=== PATIENT | male | born 1980 | race Caucasian/White ===

== ENCOUNTER 2020-05-20 06:00 | Outpatient (RCR) | payer OTHER, SELFPAY | END 2020-06-18 23:59 | disposition home or self-care (01) | LOC: GPT 06:00 | PROVIDERS: Referring Provider Neurological Surgery; Visit Provider Neurological Surgery | DX: M54.5 Low back pain (principal); G89.29 Other chronic pain; M96.1 Postlaminectomy syndrome, not elsewhere classified | CPT/HCPCS: 97032; 97110; 97112; 97116; 97140; 97161; 97530 ==

== ENCOUNTER 2023-12-28 09:15 | Day surgery (SDC) | payer BC, MEDICAID, SELFPAY ==
[2023-12-28 09:38] VITALS: BP 116/62; PULSE 69; RESP 18; TEMP 36.1; O2SAT 100
[2023-12-28 09:42] VITALS: BMI 30.6
[2023-12-28] MEDS: sodium chloride 0.9% 1,000 ML 30 ML IV (09:50)
--- NOTE | 2023-12-28 10:03 | ANES.PREANE2 ---
Pre-Anesthetic Assessment Height/Weight: Height 1.66 m Weight 84.822 kg Temp Pulse Resp BP Pulse Ox O2 Del Method 97.0 F L 69 18 116/62 100 Room Air 12/28/23 09:38 12/28/23 09:38 12/28/23 09:38 12/28/23 09:38 12/28/23 09:38 12/28/23 09:38 Preop Diagnosis: screening Operation Date: 12/28/23 10:30 Proposed Procedures p EGD - 48348, 19532, G0105, K92.2, K21.9(Not Applicable) - Davis Peralta DO s Colonoscopy(Not Applicable) - Davis Peralta DO Familial anesthetic complications: none Was Beta Carlyle taken within 24 hours: N/A Was Clonidine taken within 24 hours: N/A Last intake: Intake Last Liquid Date 12/27/23 Last Liquid Time 20:00 Last Solid Date 12/26/23 Last Solid Time 20:00 Social No alcohol and No tobacco Exam alert, oriented x 3 and clear to auscultation bilaterally Airway Mallampati: Class III Dentition: full (missing front, bottom tooth) History/ROS No significant history except as noted Pulmonary Asthma (rarely uses inhaler) pt thinks he may have sleep apnea and is going for a sleep study on 01/02/24 CV/HEM None reported None reported Hepatic None reported GI Gastroesophageal Reflux Disease Metabolic None reported Musc/skel Lower Back Pain (chronic) Neuropsych None reported Anesthetic Plan ASA status: 2 Anesthesia: MAC Risk of > 500 ml blood loss (7ml/kg in children): No Medications/Allergies Home Medications Medication Instructions Recorded Confirmed Last Taken Type albuterol sulfate 90 mcg/actuation 1 inh inhalation QID PRN sob 11/03/23 12/28/23 Unknown History aerosol inhaler cholecalciferol (vitamin D3) 25 25 mcg PO DAILY 11/03/23 12/28/23 12/27/23 History mcg (1,000 unit) capsule cyanocobalamin (vitamin B-12) 1,000 mcg IM .Monthly 11/03/23 12/28/23 12/03/23 History 1,000 mcg/mL injection solution epinephrine 0.15 mg/0.3 mL 0.15 mg IM Q30M PRN allrgy 11/03/23 12/28/23 Unknown History injection,auto-injector pantoprazole 40 mg tablet,delayed 40 mg PO BID 6 weeks #84 tabs 11/14/23 12/28/23 12/28/23 Rx release (Protonix) ascorbic acid (vitamin C) 500 mg 500 mg PO DAILY 12/13/23 12/28/23 12/26/23 History capsule ferrous fumarate 325 mg (106 mg 325 mg PO DAILY 12/13/23 12/28/23 12/26/23 History iron) tablet trazodone 100 mg tablet 200 mg (2 x 100 mg) PO .HS PRN 12/13/23 12/28/23 12/27/23 Rx insomnia #60 tabs venlafaxine 150 mg tablet,extended 150 mg PO DAILY #30 tabs 12/13/23 12/28/23 12/27/23 Rx release 24 hr Allergies Allergy/AdvReac Type Severity Reaction Status Date / Time Alpha-Gal Allergy Intermediate ALGY-Anaphy Verified 12/28/23 09:37 (Cpgqjgntg-Nmxwz-1,3-Gala laxis codeine Allergy Intermediate Sweating & Verified 12/28/23 09:37 hives. Current Medications Generic Name Dose Route Start Last Admin Trade Name Freq PRN Reason Stop Dose Admin Sodium Chloride 1,000 mls @ 30 mls/hr 12/28/23 09:30 12/28/23 09:50 Sodium Chloride 0.9% IV 12/29/23 09:29 30 mls/hr .Q24H FLOR Administration PFSH Anesthesia Medical History Psychiatric care Family History Mother Cancer breast Unknown Cancer prostate cancer Social History Smoking and tobacco/nicotine status: unknown if used tobacco/nicotine Alcohol intake: former Data Anesthesia Cardiac Studies: No Data to Display
--- NOTE | 2023-12-28 10:14 | PM.HP ---
Providers/Chief Complaint Chief Complaint: K92.2 History of Present Illness Harry Irwin is a 43 year old male Review of Systems General: Reports: 10 or more systems reviewed and unremarkable except in HPI and below Medications/Allergies Home Medications Medication Instructions Recorded Confirmed Last Taken Type albuterol sulfate 90 mcg/actuation 1 inh inhalation QID PRN sob 11/03/23 12/28/23 Unknown History aerosol inhaler cholecalciferol (vitamin D3) 25 25 mcg PO DAILY 11/03/23 12/28/23 12/27/23 History mcg (1,000 unit) capsule cyanocobalamin (vitamin B-12) 1,000 mcg IM .Monthly 11/03/23 12/28/23 12/03/23 History 1,000 mcg/mL injection solution epinephrine 0.15 mg/0.3 mL 0.15 mg IM Q30M PRN allrgy 11/03/23 12/28/23 Unknown History injection,auto-injector pantoprazole 40 mg tablet,delayed 40 mg PO BID 6 weeks #84 tabs 11/14/23 12/28/23 12/28/23 Rx release (Protonix) ascorbic acid (vitamin C) 500 mg 500 mg PO DAILY 12/13/23 12/28/23 12/26/23 History capsule ferrous fumarate 325 mg (106 mg 325 mg PO DAILY 12/13/23 12/28/23 12/26/23 History iron) tablet trazodone 100 mg tablet 200 mg (2 x 100 mg) PO .HS PRN 12/13/23 12/28/23 12/27/23 Rx insomnia #60 tabs venlafaxine 150 mg tablet,extended 150 mg PO DAILY #30 tabs 12/13/23 12/28/23 12/27/23 Rx release 24 hr Allergies Allergy/AdvReac Type Severity Reaction Status Date / Time Alpha-Gal Allergy Intermediate ALGY-Anaphy Verified 12/28/23 09:37 (Zdbwopbry-Rqzrx-3,3-Gala laxis codeine Allergy Intermediate Sweating & Verified 12/28/23 09:37 hives. PFSH Acute PFSH: Medical History Psychiatric care Family History Mother Cancer breast Unknown Cancer prostate cancer Social History Smoking and tobacco/nicotine status: unknown if used tobacco/nicotine Alcohol intake: former Vitals/I&O/Wt Last Vital Signs Temp 97.0 F L 12/28/23 09:38 Pulse 69 12/28/23 09:38 Resp 18 12/28/23 09:38 BP 116/62 12/28/23 09:38 Pulse Ox 100 12/28/23 09:38 O2 Del Method Room Air 12/28/23 09:38 Weight last 48 hrs Weight 187 lb A&P Assessment and plan (1) GI bleed: (2) Abscess, perirectal: Plan EGD Colonoscopy and examination under anesthesia Attestations Medical Necessity Statement*: Home Coding Level of Care Code Acute Code for [facility] Fwd Diagnoses GI bleed K92.2 Abscess, perirectal K61.1
[2023-12-28 10:40] VITALS: BP 118/81; PULSE 88; RESP 16; TEMP 36.2; O2SAT 96
[2023-12-28 10:50] VITALS: BP 131/69; PULSE 80; RESP 16; O2SAT 99
[2023-12-28 11:00] VITALS: BP 134/83; PULSE 70; RESP 16; O2SAT 100
[2023-12-28 11:10] VITALS: BP 128/80; PULSE 65; RESP 16; O2SAT 100
--- NOTE | 2023-12-28 11:20 | ANE.PACU2 ---
Inpatient post-anesthesia follow up: Airway intact: Yes Vital signs: Temperature 97.2 F Pulse Rate 65 Respiratory Rate 16 Blood Pressure 128/80 Pulse Oximetry 100 Oxygen Delivery Me thod Room Air Oxygen Flow Rate Fraction of Inspir ed Oxygen Hydration adequate: Yes Nausea and vomiting: No Pain level: 1 Mental status: Baseline
== END 2023-12-28 11:22 | disposition home or self-care (01) ==
PROVIDERS: Visit Provider Surgery
PROC: 0DJ08ZZ Inspection of Upper Intestinal Tract, Via Natural or Artificial Opening Endoscopic (ICD-10-PCS; CPT 43235; principal; 2023-12-28 10:30)
PROC: 0DJD8ZZ Inspection of Lower Intestinal Tract, Via Natural or Artificial Opening Endoscopic (ICD-10-PCS; CPT 45378; 2023-12-28 10:30)
DX: K92.2 Gastrointestinal hemorrhage, unspecified (principal); K91.1 Postgastric surgery syndromes; K64.8 Other hemorrhoids; K21.9 Gastro-esophageal reflux disease without esophagitis; K29.50 Unspecified chronic gastritis without bleeding
CPT/HCPCS: 43239; 45378; 88305; 88342; J7030

== ENCOUNTER 2024-01-17 08:02 | Day surgery (SDC) | payer BC, MEDICAID, SELFPAY ==
[2024-01-17] VITALS (12 sets, daily range): BP systolic 133–153; BP diastolic 72–89; PULSE 71–113; RESP 11–24; TEMP 36.1–36.6; O2SAT 93–100; BMI 32.3
[2024-01-17] MEDS: sodium chloride 0.9% 1,000 ML 30 ML IV (08:34)
--- NOTE | 2024-01-17 08:54 | W.PM.OPSUD ---
Surgery/Procedure H&P Update DATE OF PROCEDURE: January 17, 2024 DATE H&P PERFORMED: 01/06/24 H&P UPDATE INFORMATION: I have reviewed H&P completed within last 30 days, I have examined patient prior to procedure and No changes to prior documentation PLANNED PROCEDURE: Operation Date: 01/17/24 09:45 Proposed Procedures p Hemorrhoidectomy 22226 29573, K64.8(Not Applicable) - aDvis Peralta DO
--- NOTE | 2024-01-17 09:51 | ANES.PREANE2 ---
Pre-Anesthetic Assessment Height/Weight: Height 5 ft 6 in Weight 200 lb Temp Pulse Resp BP Pulse Ox O2 Del Method 97.9 F 71 16 135/88 99 Room Air 01/17/24 08:26 01/17/24 08:26 01/17/24 08:26 01/17/24 08:26 01/17/24 08:26 01/17/24 08:26 Preop Diagnosis: Internal hemorrhoids Operation Date: 01/17/24 09:45 Proposed Procedures p Hemorrhoidectomy 30373 45762, K64.8(Not Applicable) - Davis Peralta, DO Was Beta Carlyle taken within 24 hours: N/A Was Clonidine taken within 24 hours: N/A Last intake: Intake Last Liquid Date 01/16/24 Last Liquid Time 20:00 Last Solid Date 01/16/24 Last Solid Time 18:00 Social No alcohol and No tobacco Exam alert, oriented x 3, clear to auscultation bilaterally and regular rate & rhythm Airway Submandibular: within normal limits Cervical ROM: within normal limits Mallampati: Class II Dentition: full Comments: Comments: Front missing tooth Anesthetic Plan ASA status: 2 Anesthesia: General Other: No prior issues with anesthesia Recent colonoscopy without issues NPO since yesterday On chronic oxy for back pain, due for lumbar fusion in 3 weeks Alpha gal positive, anesthesia team aware GERD, on chronic Protonix Patient is able to perform ADLs, limited due to chronic pain Plan for GETA Medications/Allergies Home Medications Medication Instructions Recorded Confirmed Last Taken Type albuterol sulfate 90 mcg/actuation 1 inh inhalation QID PRN sob 11/03/23 01/16/24 Unknown History aerosol inhaler cholecalciferol (vitamin D3) 25 25 mcg PO DAILY 11/03/23 01/16/24 01/16/24 History mcg (1,000 unit) capsule cyanocobalamin (vitamin B-12) 1,000 mcg IM .Monthly 11/03/23 01/16/24 01/02/24 History 1,000 mcg/mL injection solution epinephrine 0.15 mg/0.3 mL 0.15 mg IM Q30M PRN allrgy 11/03/23 01/16/24 Unknown History injection,auto-injector ascorbic acid (vitamin C) 500 mg 500 mg PO DAILY 12/13/23 01/16/24 01/15/24 History capsule ferrous fumarate 325 mg (106 mg 325 mg PO DAILY 12/13/23 01/16/24 01/15/24 History iron) tablet trazodone 100 mg tablet 200 mg (2 x 100 mg) PO .HS PRN 12/13/23 01/16/24 01/15/24 Rx insomnia #60 tabs venlafaxine 150 mg tablet,extended 150 mg PO DAILY #30 tabs 12/13/23 01/16/24 01/16/24 Rx release 24 hr tizanidine 4 mg tablet 4 mg PO Q8H PRN Spasms 01/16/24 01/17/24 01/17/24 History Allergies Allergy/AdvReac Type Severity Reaction Status Date / Time Alpha-Gal Allergy Intermediate ALGY-Anaphy Verified 01/17/24 08:21 (Qrmwbwnpt-Hrbbq-8,3-Gala laxis codeine Allergy Intermediate Sweating & Verified 01/17/24 08:21 hives. Current Medications Generic Name Dose Route Start Last Admin Trade Name Freq PRN Reason Stop Dose Admin Sodium Chloride 1,000 mls @ 30 mls/hr 01/17/24 08:30 01/17/24 08:34 Sodium Chloride 0.9% IV 01/18/24 08:29 30 mls/hr .Q24H FLOR Administration PFSH Anesthesia Medical History (Updated 01/06/24 @ 09:43 by Davis Peralta DO) Abscess, perirectal Psychiatric care Family History Mother Cancer breast Unknown Cancer prostate cancer Social History Smoking and tobacco/nicotine status: never used tobacco/nicotine Alcohol intake: former Data Anesthesia Cardiac Studies: No Data to Display
[2024-01-17] MEDS: ceFAZolin 2,000 mg SDV 2000 MG IVP (10:05)
[2024-01-17] MEDS: tranexamic acid 1,000 mg/10mL SDV 1000 MG IV ×2 (11:12→12:11)
[2024-01-17] MEDS: mupirocin oint 22 gm 1 APPLIC TOPICAL (11:16)
[2024-01-17] MEDS: BUPivacaine 0.5% INJ 10 mL 20 ML INJECTION (11:20)
[2024-01-17] MEDS: BUPivacaine 0.5% INJ 10 mL INJECTION (11:20)
--- NOTE | 2024-01-17 11:42 | PM.OP ---
Operative Report Date of procedure: January 17, 2024 Pre-op diagnosis: Internal hemorrhoids Subcutaneous mass Possible perirectal fistula Post-op diagnosis: Internal hemorrhoids Subcutaneous mass Perirectal fistula Procedure done: Examination under anesthesia Hemorrhoidectomy of 2 hemorrhoidal pillars Excision of subcutaneous mass 3.2 cm Fistulotomy Implants: Surgicel and 4 x 4 gauze Specimens removed/disposition: Subcutaneous mass Hemorrhoidal pillars x 2 Surgeon: Davis Peralta DO Anesthesia: General and Local Estimated blood loss (mL): 50 Complications: None apparent Brief History: This is a very pleasant 43-year-old gentleman who presented my office with internal hemorrhoids. Hemorrhoidectomy was indicated. The risks and benefits were explained and documented. When he presented to the hospital the day of the procedure, he had a draining subcutaneous mass os peroneum. There was possible there was a perirectal fistula as well. Examination under anesthesia and possible fistulotomy was indicated. The risks and benefits were explained and documented. Procedure: Patient was wheeled operative room placed on the OR table in the lithotomy position. General endotracheal intubation was achieved by the part of anesthesia. The anus and perineum were inspected prepped and draped in usual sterile fashion. A timeout was performed. All present were in agreement. An examination under anesthesia was performed using an anal retractor. I then examined the sinus tract just left of the midline. A lacrimal probe was passed down through the sinus tract and exited in the rectum. This was just superficial to the anal sphincter. Bupivacaine was. A 10 blade scalpel was then used to used for localization over the future fistulotomy site incised the skin between both ends of the lacrimal probe. Electrocautery was then used to dissect down through the subcutaneous tissues to the probe. The fistula tract was splayed open. At the anterior portion of the fistula tract there was a subcutaneous mass which I excised. Excision was 3.2 cm in length. A 10 blade scalpel was used for this portion. Electrocautery was used for hemostasis. The skin overlying the excision area was closed with 3-0 running nylon in a simple running fashion. Attention was then brought to the hemorrhoidectomy. He had very large hemorrhoids. The lateral internal hemorrhoidal pillar was quite large and was excised using Bovie cautery and cut mode at the skin and then a harmonic down along its length. Specimen was passed off further hemostasis was achieved electrocautery. The right posterior hemorrhoidal pillar was then taken in a similar fashion. The right anterior hemorrhoidal pillar was the smallest. I decided to leave this due to the overall trauma in the area. I wanted to leave some anoderm for healing. Hemostasis was achieved with electrocautery and 4 x 4 gauze wrapped in Surgicel was lubricated and placed into the anus. I cannot place thrombin and Gelfoam because of the anaphylaxis to alpha gal. Bacitracin was placed over the fistulotomy and excision site. Sterile dressing was applied. Patient tolerated procedure well.
--- NOTE | 2024-01-17 12:40 | ANE.PACU2 ---
Inpatient post-anesthesia follow up: Airway intact: Yes Vital signs: Temperature 98 F Pulse Rate 81 Respiratory Rate 16 Blood Pressure 142/89 Pulse Oximetry 94 Oxygen Delivery Me thod Room Air Oxygen Flow Rate 8 Fraction of Inspir ed Oxygen Hydration adequate: Yes Nausea and vomiting: No Pain level: 1 Mental status: Baseline
[2024-01-17] MEDS: oxyCODONE-APAP 5-325 mg Tablet 1 TAB PO (13:03)
== END 2024-01-17 14:30 | disposition home or self-care (01) ==
PROVIDERS: PCP Family Medicine; Visit Provider Surgery
PROC: (CPT 46262; principal; 2024-01-17 09:45)
DX: K64.8 Other hemorrhoids (principal); K60.50 Anorectal fistula, unspecified; Z79.891 Long term (current) use of opiate analgesic; K21.9 Gastro-esophageal reflux disease without esophagitis
CPT/HCPCS: 46262; 88304; 88307; J0131; J0330; J0690; J1100; J1171; J1200; J1885; J2250; J2405; J3010; J3490; J7030

== ENCOUNTER 2024-02-01 20:00 | Outpatient (CLI) | payer BC, MEDICAID, SELFPAY | END 2024-02-01 20:01 | disposition home or self-care (01) | LOC: SLEEP 23:58 | DX: G47.00 Insomnia, unspecified (principal) | CPT/HCPCS: 95810 ==

== ENCOUNTER 2024-02-23 09:28 | Day surgery (SDC) | payer BC, MEDICAID, SELFPAY ==
[2024-02-23] VITALS (12 sets, daily range): BP systolic 136–165; BP diastolic 61–100; PULSE 61–84; RESP 17–18; TEMP 36.5–36.9; O2SAT 96–100; BMI 31.3
--- NOTE | 2024-02-23 10:21 | W.PM.OPSUD ---
Surgery/Procedure H&P Update DATE OF PROCEDURE: February 23, 2024 DATE H&P PERFORMED: 02/13/24 H&P UPDATE INFORMATION: I have reviewed H&P completed within last 30 days, I have examined patient prior to procedure and No changes to prior documentation PLANNED PROCEDURE: Operation Date: 02/23/24 11:20 Proposed Procedures p Laparoscopic Inguinal Hernia Repair with mesh [id number], K40.20(Bilateral) - Davis Peralta DO
[2024-02-23] MEDS: sodium chloride 0.9% 1,000 ML 30 ML IV (10:36)
--- NOTE | 2024-02-23 10:40 | P.ANESASSM_ITS ---
Pre-Anesthetic Assessment Height/Weight: Height 5 ft 7 in Weight 200 lb Temp Pulse Resp BP Pulse Ox O2 Del Method 97.8 F 61 18 144/84 100 Room Air 02/23/24 10:20 02/23/24 10:20 02/23/24 10:20 02/23/24 10:20 02/23/24 10:20 02/23/24 10:29 Preop Diagnosis: Inguinal hernias Operation Date: 02/23/24 11:20 Proposed Procedures p Laparoscopic Inguinal Hernia Repair with mesh [id number], K40.20(Bilateral) - Davis Peralta, DO Was Beta Carlyle taken within 24 hours: N/A Was Clonidine taken within 24 hours: N/A Last intake: Intake Last Liquid Date 02/22/24 Last Liquid Time 19:00 Last Solid Date 02/22/24 Last Solid Time 18:00 Social No alcohol Smokes marijuana daily Exam alert, oriented x 3, clear to auscultation bilaterally and regular rate & rhythm Airway Submandibular: within normal limits Cervical ROM: within normal limits Mallampati: Class II Dentition: full Comments: Comments: Front missing tooth Anesthetic Plan ASA status: 3 Anesthesia: General Other: No prior issues with anesthesia Recent hemorrhoidectomy under GA without issues NPO since yesterday On chronic oxy for back pain, due for lumbar fusion soon Alpha gal positive, anesthesia team aware GERD, on chronic Protonix Patient is able to perform ADLs, limited due to chronic pain Plan for GETA with possible postop nerve block Medications/Allergies Home Medications Medication Instructions Recorded Confirmed Last Taken Type albuterol sulfate 90 mcg/actuation 1 inh inhalation QID PRN sob 11/03/23 02/22/24 02/22/24 History aerosol inhaler cholecalciferol (vitamin D3) 25 25 mcg PO DAILY 11/03/23 02/22/24 02/22/24 History mcg (1,000 unit) capsule cyanocobalamin (vitamin B-12) 1,000 mcg IM .Monthly 11/03/23 02/22/24 02/02/24 History 1,000 mcg/mL injection solution epinephrine 0.15 mg/0.3 mL 0.15 mg IM Q30M PRN allrgy 11/03/23 02/22/24 Unknown History injection,auto-injector ascorbic acid (vitamin C) 500 mg 500 mg PO DAILY 12/13/23 02/22/2402/21/24 History capsule ferrous fumarate 325 mg (106 mg 325 mg PO DAILY 12/13/23 02/22/24 02/22/24 H istory iron) tablet trazodone 100 mg tablet 200 mg (2 x 100 mg) PO .HS PRN 12/13/23 02/22/24 02/22/24 Rx insomnia #60 tabs venlafaxine 150 mg tablet,extended 150 mg PO DAILY #30 tabs 12/13/23 02/22/24 02/22/24 Rx release 24 hr tizanidine 4 mg tablet 4 mg PO Q8H PRN Spasms 01/16/24 02/22/24 02/22/24 History oxycodone-acetaminophen 10 mg-325 1 tab PO Q6H PRN pain #28 tabs 01/17/24 02/22/24 02/23/24 Rx mg tablet pantoprazole 40 mg tablet,delayed 40 mg PO DAILY #30 tabs 02/13/24 02/22/24 02/23/24 Rx release Allergies Allergy/AdvReac Type Severity Reaction Status Date / Time Alpha-Gal Allergy Intermediate ALGY-Anaphy Verified 01/17/24 08:21 (Oyiqhmwgr-Ljhvr-5,3-Gala laxis codeine Allergy Intermediate Sweating & Verified 01/17/24 08:21 hives. Current Medications Generic Name Dose Route Start Last Admin Trade Name Freq PRN Reason Stop Dose Admin Sodium Chloride 1,000 mls @ 30 mls/hr 02/23/24 09:45 02/23/24 10:36 Sodium Chloride 0.9% IV 02/24/24 09:44 30 mls/hr .Q24H FLOR Administration PFSH Anesthesia Medical History (Updated 02/23/24 @ 07:13 by Davis Peralta DO) Abscess, perirectal Psychiatric care Surgical History (Updated 02/23/24 @ 07:13 by Davis Peralta DO) Hx of appendectomy 1990 Hx of hernia repair right side 2002 Hx of carpal tunnel repair bilat 2002 Hx of decompressive lumbar laminectomy History of esophagogastroduodenoscopy (EGD) History of colonoscopy Hx of hemorrhoidectomy 01/17/24 Dr Peralta Family History Mother Cancer breast Unknown Cancer prostate cancer Social History Smoking and tobacco/nicotine status: former use of tobacco/nicotine Alcohol intake: former Substance/Drug Use: current Substance/Drug use frequency: few times a week Data Anesthesia Cardiac Studies: No Data to Display
[2024-02-23] MEDS: fentaNYL 50 mcg/mL INJ 2mL IVP (12:33)
[2024-02-23] MEDS: ceFAZolin 2,000 mg SDV 2000 MG IVP (13:23)
[2024-02-23] MEDS: lidocaine-epi 2% PF 1:200,000 20 mL SDV XX (13:59)
--- NOTE | 2024-02-23 14:29 | PM.OP ---
Operative Report Date of procedure: February 23, 2024 Surgeon: Davis Peralta DO Procedure: Pre-op diagnosis: Recurrent right inguinal hernia Left inguinal hernia Post-op diagnosis: Recurrent direct right inguinal hernia Indirect left inguinal hernia Procedure done: Laparoscopic (TEPP) repair of recurrent right inguinal hernia with mesh Laparoscopic (TEPP) repair of leftinguinal hernia with mesh Implants: Left and right extra-large 3D max Bard mesh is Specimens removed/disposition: None Surgeon: Davis Peralta DO Anesthesia: General and Local Estimated blood loss (mL): 5 Complications: None apparent Brief History: This is a very pleasant 43-year-old gentleman who presented my office with bilateral inguinal hernias. Laparoscopic repair with mesh was indicated. The risks and benefits were explained and documented. Procedure: Patient was wheeled into the operative room and placed on the OR table in a supine position. Abdomen was inspected prepped and draped in usual sterile fashion. Time-out was performed and all present were in agreement. A 15 blade scalpel was used to make 1.2 centimeter incision infraumbilically. Combination of sharp and blunt dissection was performed down to the anterior rectus sheath which was opened sharply. The dissecting balloon was then inserted into the space of Retzius and blown up. We put the camera into the port and identified that we were in the correct space. I then placed 2 5 millimeter trocars suprapubically in the midline. I then used endokitners to bluntly dissect in the space of Retzius out laterally. A recurrent direct inguinal hernia was identified on the right. Blunt dissection was performed to dissect down the hernia sac until the vas deferens dove medially. An extra-large 3D max Bard right inguinal mesh was then placed into the space of Retzius. The mesh was unrolled and tacked once medially at the pubic bone. The mesh laid out nicely over the spermatic cord. An indirect inguinal hernia was identified on the left. Blunt dissection was performed to dissect down the hernia sac until the vas deferens dove medially. An extra-large 3D max Bard left inguinal mesh was then placed into the space of Retzius. The mesh was unrolled and tacked once medially at the pubic bone. The mesh laid out nicely over the spermatic cord. Hernia sacs were held underneath the meshes as the insufflation was released. Incisions were closed with 4 O Vicryl in a subcuticular interrupted fashion. Skin glue was applied. Patient tolerated the procedure well.
--- NOTE | 2024-02-23 15:35 | ANE.PACU2 ---
Inpatient post-anesthesia follow up: Airway intact: Yes Vital signs: Temperature 98.4 F Pulse Rate 74 Respiratory Rate 17 Blood Pressure 138/89 Pulse Oximetry 98 Oxygen Delivery Me thod Room Air Oxygen Flow Rate Fraction of Inspir ed Oxygen Hydration adequate: Yes Nausea and vomiting: No Pain level: 1 Mental status: Baseline
[2024-02-23] MEDS: oxyCODONE-APAP 10-325 mg Tablet 1 TAB PO (15:57)
== END 2024-02-23 16:34 | disposition home or self-care (01) ==
PROVIDERS: PCP Family Medicine; Visit Provider Surgery
PROC: (CPT 49650; principal; 2024-02-23 11:20)
DX: K40.91 Unilateral inguinal hernia, without obstruction or gangrene, recurrent (principal); K40.90 Unilateral inguinal hernia, without obstruction or gangrene, not specified as recurrent; Z79.891 Long term (current) use of opiate analgesic; M54.9 Dorsalgia, unspecified; Z98.1 Arthrodesis status; K21.9 Gastro-esophageal reflux disease without esophagitis; Z87.891 Personal history of nicotine dependence; Z98.890 Other specified postprocedural states
CPT/HCPCS: 49651; 49650; 51702; C1781; J0131; J0690; J1100; J1171; J2250; J2405; J2704; J2710; J3010; J3490; J7030

== ENCOUNTER 2024-03-21 06:30 | Outpatient (RCR) | payer SELFPAY | END 2024-04-20 23:59 | disposition home or self-care (01) | LOC: GPT 06:30 | PROVIDERS: Visit Provider Nurse Practitioner Family | DX: M96.1 Postlaminectomy syndrome, not elsewhere classified (principal) | CPT/HCPCS: 97112; 97161 ==

== ENCOUNTER 2024-03-28 11:35 | Outpatient (CLI) | payer BC, MEDICAID, SELFPAY ==
--- NOTE | 2024-03-28 11:55 | CT_ITS ---
WS: [id number] CT PARANASAL SINUSES HISTORY: CHRONIC RHINITIS TECHNIQUE: Contiguous 2.5 mm axial images obtained through the sinuses. Images are reconstructed in s agittal and coronal planes. All CT scans at [facility] use at least one of these dose optimiz ation techniques: automated exposure control; mA and/or kV adjustment per patient size (includes targ eted exams where dose is matched to clinical indication); or iterative reconstruction. DLP: 343.03 mGy.cm COMPARISON: None available. Frontal sinuses: Normal. Sphenoid sinus: Normal. Ethmoid sinuses: Normal. Maxillary sinus: Very tiny mucous retention cyst in the floor the LEFT maxillary sinus. No air-fluid levels. Ostiomeatal unit: Tiny amount of mucoperiosteal thickening but patent. Very mild LEFT curvature of the nasal septum with bony spur to the LEFT. Small amount of calcified plaque in the intracranial carotid arteries. Globes and orbits are intact. CT/CT sinus wo con* [id number] IMPRESSION: 1. No acute sinusitis. 2. Minimal mucous retention cyst in the floor the LEFT maxillary sinus.
== END 2024-03-28 11:36 | disposition home or self-care (01) ==
LOC: RAD 11:36
PROVIDERS: PCP Family Medicine; Visit Provider Otolaryngology
DX: J31.0 Chronic rhinitis (principal); H92.02 Otalgia, left ear; K11.6 Mucocele of salivary gland; J34.89 Other specified disorders of nose and nasal sinuses; I65.23 Occlusion and stenosis of bilateral carotid arteries
CPT/HCPCS: 70486

== ENCOUNTER 2024-04-21 06:00 | Outpatient (RCR) | payer BC, MEDICAID, SELFPAY | END 2024-05-18 23:59 | disposition home or self-care (01) | LOC: GPT 06:00 | PROVIDERS: PCP Nurse Practitioner Family; Visit Provider Nurse Practitioner Family | DX: M43.26 Fusion of spine, lumbar region (principal); M54.16 Radiculopathy, lumbar region | CPT/HCPCS: 97110; 97112; 97140 ==

== ENCOUNTER 2024-05-19 06:30 | Outpatient (RCR) | payer BC, MEDICAID, SELFPAY | END 2024-06-18 23:59 | disposition home or self-care (01) | LOC: GPT 06:30 | PROVIDERS: PCP Nurse Practitioner Family; Visit Provider Nurse Practitioner Family | DX: M96.1 Postlaminectomy syndrome, not elsewhere classified (principal) | CPT/HCPCS: 97110; 97112; 97140 ==

== ENCOUNTER 2024-06-19 05:00 | Outpatient (RCR) | payer BC, MEDICAID, SELFPAY | END 2024-07-18 23:59 | disposition home or self-care (01) | LOC: GPT 05:00 | PROVIDERS: PCP Nurse Practitioner Family; Visit Provider Nurse Practitioner Family | DX: M96.1 Postlaminectomy syndrome, not elsewhere classified (principal) | CPT/HCPCS: 97110; 97112; 97530 ==

== ENCOUNTER 2024-06-20 10:39 | Day surgery (SDC) | payer BC, MEDICAID, SELFPAY ==
[2024-06-20] VITALS (10 sets, daily range): BP systolic 132–164; BP diastolic 69–97; PULSE 59–100; RESP 9–25; TEMP 36.2–36.5; O2SAT 94–100
--- NOTE | 2024-06-20 11:05 | ANES.PREANE2 ---
Pre-Anesthetic Assessment Height/Weight: Height 1.7 m Temp Pulse Resp BP Pulse Ox O2 Del Method 97.5 F L 59 L 18 141/89 96 Room Air 06/20/24 10:56 06/20/24 10:56 06/20/24 10:56 06/20/24 10:56 06/20/24 10:56 06/20/24 11:03 Operation Date: 06/20/24 12:15 Proposed Procedures p Exam Under Anesthesia of rectum(Not Applicable) - Cristi Linares MD s Possible Incision And Drainage of Perianal Abscess(Not Applicable) - Cristi Linares MD s Possible Fistulotomy Anal(Not Applicable) - Cristi Linares MD s Possible Seton Placement(Not Applicable) - Cristi Linares MD Familial anesthetic complications: None Was Beta Carlyle taken within 24 hours: N/A Was Clonidine taken within 24 hours: N/A Last intake: Intake Last Liquid Date 06/19/24 Last Liquid Time 20:00 Last Solid Date 06/19/24 Last Solid Time 20:00 Social No alcohol and No tobacco marijuana Exam alert, oriented x 3, clear to auscultation bilaterally and regular rate & rhythm Airway Mallampati: Class III Dentition: other (Missing teeth) Pulmonary Asthma GI Gastroesophageal Reflux Disease Anesthetic Plan ASA status: 2 Anesthesia: General Risk of > 500 ml blood loss (7ml/kg in children): No Medications/Allergies Home Medications ?Medication ?Instructions ?Recorded ?Confirmed ?Last Taken ?Type albuterol sulfate 90 mcg/actuation 1 inh inhalation QID PRN sob 11/03/23 06/12/24 02/22/24 History aerosol inhaler cyanocobalamin (vitamin B-12) 1,000 mcg IM .Monthly 11/03/23 06/12/24 06/01/24 History 1,000 mcg/mL injection solution epinephrine 0.15 mg/0.3 mL 0.15 mg IM Q30M PRN allrgy 11/03/23 06/12/24 Unknown History injection,auto-injector tizanidine 4 mg tablet 4 mg PO Q8H PRN Spasms 01/16/24 06/12/24 06/12/24 History oxycodone-acetaminophen 10 mg-325 1 tab PO Q6H PRN pain #28 tabs 01/17/24 06/12/24 06/20/24 08:00 Rx mg tablet Held on 02/23/24. Instructions: Resume on 02/28/24. pantoprazole 40 mg tablet,delayed 40 mg PO DAILY #30 tabs 02/13/24 06/12/24 06/20/24 08:00 Rx release testosterone cypionate 100 mg/mL 100 mg SUBCUT Q7D 04/03/24 06/12/24 06/08/24 History intramuscular oil (Depo-Testosterone) venlafaxine 150 mg tablet,extended 150 mg PO DAILY #30 tabs 04/03/24 06/12/24 06/12/24 Rx release 24 hr Vitamin D2 1 tab PO DAILY 06/12/24 06/12/24 Unknown History trazodone 100 mg tablet 100 mg PO .HS PRN insomnia 06/12/24 06/12/24 Unknown History Allergies Allergy/AdvReac Type Severity Reaction Status Date / Time Alpha-Gal Allergy Intermediate ALGY-Anaphy Verified 06/20/24 10:47 (Eyeiixmei-Srvym-6,3-Gala laxis codeine Allergy Intermediate Sweating & Verified 06/20/24 10:47 hives. [facility] Anesthesia Medical History Abscess, perirectal Psychiatric care Surgical History Status post bilateral inguinal hernia repair Hx of appendectomy 1990 Hx of hernia repair right side 2002 Hx of carpal tunnel repair bilat 2002 Hx of decompressive lumbar laminectomy History of esophagogastroduodenoscopy (EGD) History of colonoscopy Hx of hemorrhoidectomy 01/17/24 Dr Peralta Family History Mother Cancer breast Unknown Cancer prostate cancer Social History Smoking and tobacco/nicotine status: never used tobacco/nicotine Alcohol intake: former Substance/Drug Use: current Substance/Drug use frequency: few times a week Data Anesthesia Cardiac Studies: No Data to Display
[2024-06-20] MEDS: sodium chloride 0.9% 1,000 ML 30 ML IV (11:30)
--- NOTE | 2024-06-20 11:34 | W.PM.OPSUD ---
Surgery/Procedure H&P Update DATE OF PROCEDURE: June 20, 2024 DATE H&P PERFORMED: 06/07/24 H&P UPDATE INFORMATION: I have reviewed H&P completed within last 30 days, I have examined patient prior to procedure and No changes to prior documentation CHANGES TO PREVIOUS DOCUMENTATION: Consented patient for hemorrhoid banding in addition to EUA of rectum, possible fistulotomy/seton placement/I&D of perianal abscess PLANNED PROCEDURE: Operation Date: 06/20/24 12:15 Proposed Procedures p Exam Under Anesthesia of rectum(Not Applicable) - Cristi Linares MD s Possible Incision And Drainage of Perianal Abscess(Not Applicable) - Cristi Linares MD s Possible Fistulotomy Anal(Not Applicable) - Cristi Linares MD s Possible Seton Placement(Not Applicable) - Cristi Linares MD
[2024-06-20] MEDS: lidocaine-epi 1% 20 mL INJ INJECTION (12:00)
--- NOTE | 2024-06-20 12:05 | PM.OP ---
Operative Report Date of procedure: June 20, 2024 Pre-op diagnosis: Perianal abscess, perianal fistula, internal hemorrhoids Post-op diagnosis: Grade 2 right anterior internal hemorrhoid column Post-op findings: Exam under anesthesia of the rectum performed. Patient has an area at 6:00 where a cyst was removed previously. I used a lacrimal probe and did not find a fistula. Patient did not have a perianal abscess. Patient did have grade 2 right anterior internal hemorrhoid column that may be causing discomfort. Procedure done: Hemorrhoid banding Implants: N/A Specimens removed/disposition: N/A Pathology: N/A Surgeon: Cristi Linares MD Bench Tool Maker: N/A Anesthesia: General Estimated blood loss (mL): 5 Complications: N/A Findings: Hemorrhoid banding right anterior pack Condition: stable Disposition: same day Brief History: 43-year-old male who presented with perianal drainage and discomfort. Discussed risk and benefits and patient agreed to proceed with exam under anesthesia of the rectum, possible fistulotomy, possible seton placement, possible hemorrhoid banding. Patient has had multiple perianal procedures done by Dr. Peralta. Procedure: After obtaining consent the patient was brought into the OR. Preoperative antibiotics were administered. SCDs were on and functioning. General anesthesia was induced. The patient was placed prone on the operating room table. Extremities were appropriately padded. The perineum was prepped and draped using Betadine. A Tinajero retractor was introduced. I probed the 6:00 wound where a cyst had been removed on her prior surgery, the lacrimal probe did not advance more than 5 mm. I did not encounter a perianal fistula. I also examined the perineum for any perianal abscesses and I did not encounter one. I did find that the patient had grade 2 internal hemorrhoids right anterior column. I proceeded to band this right anterior column proximal to the mucocutaneous junction. Fluffs were applied and secured using gauze panties. The patient woke up from anesthesia without any complications.
--- NOTE | 2024-06-20 13:15 | ANE.PACU2 ---
Inpatient post-anesthesia follow up: Airway intact: Yes Vital signs: Temperature 97.7 F Pulse Rate 81 Respiratory Rate 18 Blood Pressure 132/69 Pulse Oximetry 95 Oxygen Delivery Me thod Room Air Oxygen Flow Rate 8 Fraction of Inspir ed Oxygen Hydration adequate: Yes Nausea and vomiting: No Pain level: 1 Mental status: Baseline
== END 2024-06-20 13:19 | disposition home or self-care (01) ==
PROVIDERS: PCP Nurse Practitioner Family; Visit Provider Student in an Organized Health Care Education/Training Program
PROC: (CPT 46221; principal; 2024-06-20 12:15)
PROC: (CPT 46221; 2024-06-20 12:15)
DX: K64.1 Second degree hemorrhoids (principal); K21.9 Gastro-esophageal reflux disease without esophagitis; Z79.899 Other long term (current) drug therapy
CPT/HCPCS: 46221; A4216; J0330; J1100; J1200; J2250; J2405; J2704; J3010; J3490; J7030; J9999

== ENCOUNTER → 2024-12-31 13:30 | Outpatient (BNVA) | payer BC, SELFPAY | PROVIDERS: PCP Nurse Practitioner Family; Visit Provider Family Medicine | DX: E83.42 Hypomagnesemia (principal); N40.1 Benign prostatic hyperplasia with lower urinary tract symptoms; N13.8 Other obstructive and reflux uropathy; R79.89 Other specified abnormal findings of blood chemistry; F41.1 Generalized anxiety disorder; F33.2 Major depressive disorder, recurrent severe without psychotic features; Z12.5 Encounter for screening for malignant neoplasm of prostate | CPT/HCPCS: 80053; 80061; 82306; 82607; 83735; 84403; 84439; 84443; 85025; G0103 ==

== ENCOUNTER 2025-01-16 10:52 | Outpatient (RCR) | payer BC, SELFPAY | END 2025-01-18 23:59 | disposition home or self-care (01) | LOC: GPT 10:52 | PROVIDERS: Visit Provider Nurse Practitioner Family | DX: M96.1 Postlaminectomy syndrome, not elsewhere classified (principal) | CPT/HCPCS: 97140; 97161 ==

== ENCOUNTER 2025-02-13 10:49 | Outpatient (RCR) | payer BC, SELFPAY | END 2025-02-17 23:59 | disposition home or self-care (01) | LOC: GPT 10:49 | PROVIDERS: Visit Provider Nurse Practitioner Family | DX: M96.1 Postlaminectomy syndrome, not elsewhere classified (principal) | CPT/HCPCS: 97110; 97112; 97140 ==

== ENCOUNTER 2025-03-20 10:51 | Outpatient (RCR) | payer BC, SELFPAY | END 2025-03-20 23:59 | disposition home or self-care (01) | LOC: GPT 10:51 | PROVIDERS: Visit Provider Nurse Practitioner Family | DX: M96.1 Postlaminectomy syndrome, not elsewhere classified (principal) | CPT/HCPCS: 97110; 97112; 97140 ==